=== PATIENT | female | born 2000 | race Caucasian/White ===

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

== ENCOUNTER 2018-05-06 16:07 | Emergency (ER) | payer OTHER ==
--- NOTE | 2018-05-06 19:10 | ED ---
Head Injury - HPI Summary HPI Summary: 17-year-old female presents with head injury yesterday. She tripped and fell stool and landed with her head on a bar. No loss consciousness. She admits to nausea but no vomiting. States she's been having worsening headache. she was seen at the [facility] and was sent here for imaging. headache is now severe and she is confused. has a hx of concussion. denies any neck pain. also admits to jaw pain. no loose teeth. - History Of Current Complaint Chief Complaint: EDHeadInjury Stated Complaint: HEAD INJURY Time Seen by Provider: 05/06/18 17:05 Hx Last Menstrual Period: January 29, 2017 Pain Intensity: 6 - Allergies/Home Medications Allergies/Adverse Reactions: Allergies Allergy/AdvReac Type Severity Reaction Status Date / Time No Known Allergies Allergy Verified 02/12/17 20:19 PMH/Surg Hx/FS Hx/Imm Hx Endocrine/Hematology History: Denies: Hx Diabetes Cardiovascular History: Denies: Hx Hypertension Respiratory History: Denies: Hx Asthma Infectious Disease History: No Infectious Disease History: Denies: Traveled Outside the [place] in Last 30 Days - Family History Known Family History: Negative: Seizure Disorder, Blood Disorder - Social History Alcohol Use: Occasionally Substance Use Type: Reports: None Smoking Status (MU): Never Smoked Tobacco Review of Systems Negative: Fever Negative: Chest Pain Negative: Shortness Of Breath Positive: Nausea. Negative: Vomiting Positive: Headache All Other Systems Reviewed And Are Negative: Yes Physical Exam Triage Information Reviewed: Yes Vital Signs On Initial Exam: Initial Vitals Temp Pulse Resp BP Pulse Ox 98.2 F 73 14 128/76 98 05/06/18 16:27 05/06/18 16:27 05/06/18 16:27 05/06/18 16:27 05/06/18 16:27 Vital Signs Reviewed: Yes Appearance: Positive: Well-Appearing Skin: Positive: Warm, Dry, Other - abrasion to forehead Head/Face: Positive: Normal Head/Face Inspection, Other - no step off, racoon eyes, henry sign Eyes: Positive: Normal, EOMI, EILEEN, Conjunctiva Clear ENT: Positive: Normal ENT inspection, Pharynx normal, TMs normal, Other - tenderness over jaw Dental: Positive: Other - no loose teeth Respiratory/Lung Sounds: Positive: Clear to Auscultation, Breath Sounds Present Cardiovascular: Positive: Normal, RRR Abdomen Description: Positive: Nontender, Soft Bowel Sounds: Positive: Present Musculoskeletal: Positive: Normal Neurological: Positive: Sensory/Motor Intact, Alert, Oriented to Person Place, Time, CN Intact II-III Psychiatric: Positive: Normal - [place] Coma Scale Best Eye Response: 4 - Spontaneous Best Motor Response: 6 - Obeys Commands Best Verbal Response: 5 - Oriented Coma Scale Total: 15 Diagnostics - Vital Signs Vital Signs Temp Pulse Resp BP Pulse Ox 05/06/18 16:27 98.2 F 73 14 128/76 98 - Laboratory Lab Statement: Any lab studies that have been ordered have been reviewed, and results considered in the medical decision making process. - CT brain CT Interpretation Completed By: Radiologist Summary of CT Findings: IMPRESSION: No acute intracranial abnormality. maxillaryfacial CT Interpretation Completed By: Radiologist Summary of CT Findings: IMPRESSION: No acute findings. Head Injury Course/Dx Course Of Treatment: 17-year-old female presents with head injury yesterday. She tripped and fell stool and landed with her head on a bar. No loss consciousness. She admits to nausea but no vomiting. States she's been having worsening headache. she was seen at the [facility] and was sent here for imaging. headache is now severe and she is confused. has a hx of concussion. denies any neck pain. also admits to jaw pain. no loose teeth. on exam normal neuro exam. with worsening headache got CT. CT brain and maxillaryfacial normal. gave concussion precautions. patient understand and agrees with plan. - Diagnoses Differential Diagnosis/HQI/PQRI: Concussion Without LOC, Contusion, Intracranial Bleed Provider Diagnoses: Head injury Discharge - Sign-Out/Discharge Documenting (check all that apply): Patient Departure - Discharge Plan Condition: Good Disposition: HOME Patient Education Materials: Concussion (ED) Referrals: No Primary Care Phys,NOPCP [Primary Care Provider] - Additional Instructions: Place ice on area as needed Take Tylenol or ibuprofen for headache every 6 hours Modify activities as tolerated Follow up with [facility] tomorrow Return to ED if develop vomiting, severe headache, change in behavior, or any new or worsening symptoms - Billing Disposition and Condition Condition: GOOD Disposition: Home
[2018-05-06 19:18] VITALS: BP 110/72
== END 2018-05-06 19:17 | disposition home or self-care (01) ==
LOC: ED 16:07
DX: S09.90XA Unspecified injury of head, initial encounter (principal); W01.190A Fall on same level from slipping, tripping and stumbling with subsequent striking against furniture, initial encounter; Y92.9 Unspecified place or not applicable
CPT/HCPCS: 70450; 70486; 99281